=== PATIENT | female | born 1985 | race Caucasian/White ===

== ENCOUNTER 2019-07-31 08:22 | Emergency (ER) | payer BC ==
[~2019-07-31] VITALS: Ht 162.6 cm; Wt 61.2 kg
[2019-07-31] MEDS ORDERED: TRAMADOL 50 MG50 MG PO (08:58)
[2019-07-31 09:18] VITALS: BP 126/73
== END 2019-07-31 09:19 | disposition home or self-care (01) ==
LOC: M.ERS 08:22
DX: M25.532 Pain in left wrist (principal); Z91.013 Allergy to seafood

== ENCOUNTER 2020-10-19 20:00 | Emergency (ER) | payer BC ==
[~2020-10-19] VITALS: Ht 162.6 cm; Wt 63.0 kg
[~2020-10-19 20:00] MED LIST: TRAMADOL 50 MG50 MG PO
[2020-10-19] MEDS ORDERED: GENTAK5 ML TOP (20:40)
[2020-10-19 20:57] VITALS: BP 130/73
== END 2020-10-19 20:57 | disposition home or self-care (01) ==
LOC: M.ERS 20:00
DX: S05.01XA Injury of conjunctiva and corneal abrasion without foreign body, right eye, initial encounter (principal); Z91.013 Allergy to seafood; X58.XXXA Exposure to other specified factors, initial encounter; Y93.89 Activity, other specified; Y92.89 Other specified places as the place of occurrence of the external cause; Y99.8 Other external cause status

== ENCOUNTER 2020-10-27 10:38 | Emergency (ER) | payer BC ==
[~2020-10-27] VITALS: Ht 162.6 cm; Wt 63.0 kg
[~2020-10-27 10:38] MED LIST changes: +GENTAK5 ML TOP
[2020-10-27] MEDS ORDERED: OCUFLOX5 ML OPHTHALMIC (12:31)
[2020-10-27] MEDS ORDERED: IBUPROFEN 800800 M1 PO (12:31)
[2020-10-27] MEDS ORDERED: NORCO5 PO (12:31)
[2020-10-27 12:47] VITALS: BP 122/68
== END 2020-10-27 12:47 | disposition home or self-care (01) ==
LOC: M.ERS 10:38
DX: S05.01XA Injury of conjunctiva and corneal abrasion without foreign body, right eye, initial encounter (principal); T15.92XA Foreign body on external eye, part unspecified, left eye, initial encounter; F17.210 Nicotine dependence, cigarettes, uncomplicated; Z91.013 Allergy to seafood; Z90.89 Acquired absence of other organs; X58.XXXA Exposure to other specified factors, initial encounter; Y93.89 Activity, other specified; Y92.89 Other specified places as the place of occurrence of the external cause; Y99.8 Other external cause status

== ENCOUNTER 2020-12-25 09:55 | Emergency (ER) | payer BC ==
[~2020-12-25] VITALS: Ht 160 cm; Wt 62.6 kg
[~2020-12-25 09:55] MED LIST changes: +IBUPROFEN 800800 M1 PO; +NORCO5 PO; +OCUFLOX5 ML OPHTHALMIC
[2020-12-25] MEDS ORDERED: FLEXERIL PO (10:14)
[2020-12-25] MEDS ORDERED: HYDROCODON-ACE1 EAC7 PO (10:14)
[2020-12-25 10:35] VITALS: BP 116/68
== END 2020-12-25 10:35 | disposition home or self-care (01) ==
LOC: M.ERS 09:55
DX: M54.6 Pain in thoracic spine (principal); Z90.89 Acquired absence of other organs; Z91.013 Allergy to seafood

== ENCOUNTER 2021-08-03 09:45 | Emergency (ER) | payer BC ==
[~2021-08-03] VITALS: Ht 160 cm; Wt 62.1 kg
[~2021-08-03 09:45] MED LIST changes: +FLEXERIL PO; +HYDROCODON-ACE1 EAC7 PO
[2021-08-03] MEDS ORDERED: AUGMENTIN 875-1 EACH PO (11:37)
[2021-08-03] MEDS ORDERED: HYDROCODON-ACE1 EAC7 PO (11:53)
[2021-08-03 12:02] VITALS: BP 128/70
== END 2021-08-03 12:03 | disposition home or self-care (01) ==
LOC: M.ERS 09:45
DX: S61.451A Open bite of right hand, initial encounter (principal); F17.210 Nicotine dependence, cigarettes, uncomplicated; Z90.89 Acquired absence of other organs; Z91.013 Allergy to seafood; W54.0XXA Bitten by dog, initial encounter; Y93.89 Activity, other specified; Y92.89 Other specified places as the place of occurrence of the external cause; Y99.8 Other external cause status